=== PATIENT | male | born 1990 | race Caucasian/White ===

== ENCOUNTER 2017-02-02 10:35 | Inpatient (IN) | payer BC, OTHER ==
[~2017-02-02] VITALS: Ht 170.2 cm; Wt 57.6 kg
[~2017-02-02 10:35] MED LIST: ESOM20CA; METH5TAB2; METR250T; PRED5PAK8
[2017-02-02] MEDS ORDERED: ACETAMINOPHEN 325 MG TAB PO ONE ×2 (10:36→11:00)
[2017-02-02] MEDS ORDERED: SODIUM CHLORIDE 0.9% 1,000 ML IVB ONE (11:07)
[2017-02-02] MEDS ORDERED: PANTOPRAZOLE SODIUM 40 MG/10 ML VIAL IV STA (11:07)
[2017-02-02] MEDS ORDERED: methylPREDNISolone SOD SUCC 125 MG/2 ML VL IV ONE (11:15)
[2017-02-02] MEDS ORDERED: HYDROmorphone HCL 2 MG/ML VL IV ONE ×2 (11:15→12:30)
[2017-02-02] MEDS ORDERED: ONDANSETRON HCL 4 MG/2 ML VIAL IV ONE (11:15)
[2017-02-02 11:35] LABS: Basophils # (auto) 0 uL; Basophils % (auto) 0.3 % (0.0-2.0); CONDITION Y; DEFINITIVE SEE PRINTOUT; Eosinophils # (auto) 0 uL; Eosinophils % (auto) 0.1 % (0.0-7.0); Hematocrit 33.3 % (41.0-53.0); Hemoglobin 11.1 g/dL (13.5-17.5); Lymphocytes # (auto) 0.6 uL; Lymphocytes % (auto) 10.8 % (10.0-50.0); Mean Corpuscular Hemoglobin 23.4 pg (28.0-32.0); Mean Corpuscular Hgb Conc. 33.2 g/dL (32.0-36.0); Mean Corpuscular Volume 70.5 fL (80.0-100.0); Monocytes # (auto) 0.7 uL; Monocytes % (auto) 12.8 % (0.0-12.0); Neutrophils # (auto) 4.2 uL; Platelet Count (auto) 267 10^3/uL (140-450); White Blood Cell 5.6 10^3/uL (4.4-10.8)
[2017-02-02 11:54] LABS: Albumin 2.8 g/dL (3.4-5.0); BUN/Creatinine Ratio 10.7; Bilirubin, Total 0.7 mg/dL (0.2-1.0); Calcium 7.9 mg/dL (8.5-10.1); Potassium 3.2 mmol/L (3.5-5.1); Total Protein 7.1 g/dL (6.4-8.2)
[2017-02-02] MEDS ORDERED: IOHEXOL 300 MG/ML 100ML BOTTLE IJ ONE (12:32)
[2017-02-02] MEDS ORDERED: IOHEXOL 350 MG/ML 100ML IJ ONE (12:49)
[2017-02-02 14:04] LABS: Urine RBC None Seen /hpf (0 - 3)
[2017-02-02 14:11] LABS: Urine Bilirubin Negative (Negative); Urine Blood Negative /uL (Negative); Urine Color Yellow (Yellow); Urine Glucose Normal (Normal); Urine Ketone TRACE (Negative); Urine Nitrite Negative (Negative); Urine Squamous Epithelial Cell FEW /hpf (<5); Urine Urobilinogen Normal (Negative)
[2017-02-02] MEDS ORDERED: GABAPENTIN 300 MG CAP PO ONE (14:30)
[2017-02-02] MEDS ORDERED: NITROGLYCERIN 0.4 MG SL TAB SL PRN (14:30)
[2017-02-02] MEDS ORDERED: POTASSIUM CHLORIDE 8 MEQ TAB PO ONE (14:30)
[2017-02-02] MEDS ORDERED: ACETAMINOPHEN 325 MG TAB PO PRN (14:30)
[2017-02-02] MEDS ORDERED: oxyCODONE ER 20 MG TAB PO ONE (14:30)
[2017-02-02] MEDS ORDERED: methylPREDNISolone SOD SUCC 40 MG/ML VL IV ONE (14:30)
[2017-02-02] MEDS ORDERED: TEMAZEPAM 15 MG CAP PO PRN (14:30)
[2017-02-02] MEDS ORDERED: AMOXICILLIN TRIHYDRATE 250 MG CAP PO ONE (14:30)
[2017-02-02] MEDS ORDERED: metroNIDAZOLE 500MG/100ML 100 ML IV ONE (14:30)
[2017-02-02] MEDS: MULTIPLE VITAMIN TAB PO SCH (14:36)
[2017-02-02] MEDS: FAMOTIDINE 20 MG TAB PO SCH ×2 (14:37→21:36)
[2017-02-02 15:04] LABS: Hematocrit 35.1 % (41.0-53.0); Hemoglobin 11.4 g/dL (13.5-17.5)
[2017-02-02 15:14] LABS: INR 1.12 (0.9-1.15); Prothrombin Time 12.2 sec (9.37-12.3)
[2017-02-02] MEDS ORDERED: LORazepam 2MG/ML-1ML VIAL IV PRN ×2 (17:45→18:00)
[2017-02-02] MEDS: BOOST PLUS 8 ounce PO SCH ×2 (18:00→22:00)
[2017-02-02] MEDS: methylPREDNISolone SOD SUCC 40 MG/ML VL IV SCH (18:00)
[2017-02-02] MEDS: metroNIDAZOLE 500MG/100ML 100 ML IV SCH (21:35)
[2017-02-02] MEDS: AMOXICILLIN TRIHYDRATE 250 MG CAP PO SCH (21:35)
[2017-02-02] MEDS: SODIUM CHLOR 0.9% PF (SALINE LOCK) 10ML VIAL IV SCH (21:35)
[2017-02-02] MEDS: LEVETIRACETAM 500 MG TAB PO SCH (21:36)
[2017-02-02] MEDS: oxyCODONE ER 20 MG TAB PO SCH (21:36)
[2017-02-02] MEDS: GABAPENTIN 300 MG CAP PO SCH (21:36)
[2017-02-02] MEDS ORDERED: GABA-339 PO (23:17)
[2017-02-02] MEDS ORDERED: ONDA8TAB6 PO (23:17)
[2017-02-02] MEDS ORDERED: MAGN250T3 PO (23:17)
[2017-02-02] MEDS ORDERED: NUTRTAB OR (23:17)
[2017-02-02] MEDS ORDERED: OXYM20TA OR (23:17)
[2017-02-02] MEDS: HYDROmorphone HCL 2 MG/ML VL IV PRN (23:44)
[2017-02-03 00:17] VITALS: BP 105/66
[2017-02-03 00:37] VITALS: BP 105/60
[2017-02-03] MEDS: methylPREDNISolone SOD SUCC 40 MG/ML VL IV SCH ×5 (01:23→23:34)
[2017-02-03] MEDS: ONDANSETRON HCL 4 MG/2 ML VIAL IV PRN ×2 (02:20→10:35)
[2017-02-03] MEDS: HYDROmorphone HCL 2 MG/ML VL IV PRN ×4 (03:57→21:57)
[2017-02-03 05:30] LABS: Basophils # (auto) 0 uL; Basophils % (auto) 0.1 % (0.0-2.0); CONDITION Y; DEFINITIVE SEE PRINTOUT; Eosinophils # (auto) 0 uL; Hematocrit 37.2 % (41.0-53.0); Hemoglobin 11.8 g/dL (13.5-17.5); Lymphocytes # (auto) 1.4 uL; Lymphocytes % (auto) 9.1 % (10.0-50.0); Mean Corpuscular Hemoglobin 22.9 pg (28.0-32.0); Mean Corpuscular Hgb Conc. 31.6 g/dL (32.0-36.0); Mean Corpuscular Volume 72.7 fL (80.0-100.0); Monocytes # (auto) 0.6 uL; Monocytes % (auto) 3.7 % (0.0-12.0); Neutrophils # (auto) 13.5 uL; Neutrophils % (auto) 87.1 % (37.0-80.0); Platelet Count (auto) 337 10^3/uL (140-450); Red Cell Distribution Width 18.7 % (11.6-16.0); White Blood Cell 15.5 10^3/uL (4.4-10.8)
[2017-02-03 05:31] VITALS: BP 124/85
[2017-02-03] MEDS: metroNIDAZOLE 500MG/100ML 100 ML IV SCH ×3 (05:52→21:56)
[2017-02-03] MEDS: AMOXICILLIN TRIHYDRATE 250 MG CAP PO SCH (05:53)
[2017-02-03] MEDS: GABAPENTIN 300 MG CAP PO SCH ×3 (05:53→21:56)
[2017-02-03] MEDS: SODIUM CHLOR 0.9% PF (SALINE LOCK) 10ML VIAL IV SCH ×3 (05:53→21:56)
[2017-02-03] MEDS: BOOST PLUS 8 ounce PO SCH ×4 (05:54→21:56)
[2017-02-03 05:56] LABS: Potassium 4.7 mmol/L (3.5-5.1)
[2017-02-03 06:00] LABS: Albumin 2.9 g/dL (3.4-5.0); BUN/Creatinine Ratio 22.2; Calcium 8.7 mg/dL (8.5-10.1)
[2017-02-03 06:03] LABS: Bilirubin, Total 0.5 mg/dL (0.2-1.0); Total Protein 8.5 g/dL (6.4-8.2)
[2017-02-03] MEDS ORDERED: ADAL40KI2 SC (07:34)
[2017-02-03 09:00] VITALS: BP 100/45
[2017-02-03] MEDS: oxyCODONE ER 20 MG TAB PO SCH ×2 (10:00→22:00)
[2017-02-03] MEDS ORDERED: cefTRIAXone 1GM/50ML D5W 50 ML IV ONE (11:00)
[2017-02-03] MEDS: MULTIPLE VITAMIN TAB PO SCH (11:08)
[2017-02-03] MEDS: LEVETIRACETAM 500 MG TAB PO SCH ×2 (11:08→21:56)
[2017-02-03] MEDS: FAMOTIDINE 20 MG TAB PO SCH ×2 (11:08→21:56)
[2017-02-03] MEDS: CITALOPRAM HYDROBR 20 MG TAB PO SCH (11:08)
[2017-02-03] MEDS ORDERED: LORazepam 0.5 MG TAB PO PRN (11:45)
[2017-02-03] MEDS ORDERED: LORazepam 2MG/ML-1ML VIAL IV PRN (12:30)
[2017-02-03] MEDS: ALPRAZolam 0.5 MG TAB PO SCH ×2 (12:44→21:57)
[2017-02-03] MEDS: HYDROmorphone HCL 2 MG TAB PO SCH ×3 (12:45→23:34)
[2017-02-03 13:00] VITALS: BP 118/73
[2017-02-03] MEDS: NYSTATIN TOPICAL POWDER 15GM TOP SCH ×2 (13:01→22:00)
[2017-02-03 21:52] VITALS: BP 118/71
[2017-02-04] VITALS (7 sets, daily range): BP systolic 103–123; BP diastolic 42–90
[2017-02-04] MEDS: SODIUM CHLOR 0.9% PF (SALINE LOCK) 10ML VIAL IV SCH ×3 (05:42→22:04)
[2017-02-04] MEDS: metroNIDAZOLE 500MG/100ML 100 ML IV SCH ×3 (05:43→22:04)
[2017-02-04] MEDS: BOOST PLUS 8 ounce PO SCH ×4 (05:43→22:05)
[2017-02-04] MEDS: HYDROmorphone HCL 2 MG TAB PO SCH ×4 (05:43→23:28)
[2017-02-04] MEDS: GABAPENTIN 300 MG CAP PO SCH ×3 (05:43→22:05)
[2017-02-04] MEDS: methylPREDNISolone SOD SUCC 40 MG/ML VL IV SCH ×4 (05:43→23:28)
[2017-02-04] MEDS: ALPRAZolam 0.5 MG TAB PO SCH ×2 (09:49→22:05)
[2017-02-04] MEDS: FAMOTIDINE 20 MG TAB PO SCH ×2 (09:49→22:05)
[2017-02-04] MEDS: ONDANSETRON HCL 4 MG/2 ML VIAL IV PRN ×2 (09:49→20:13)
[2017-02-04] MEDS: HYDROmorphone HCL 2 MG/ML VL IV PRN ×2 (09:49→20:13)
[2017-02-04] MEDS: LEVETIRACETAM 500 MG TAB PO SCH ×2 (09:49→22:05)
[2017-02-04] MEDS: CITALOPRAM HYDROBR 20 MG TAB PO SCH (09:49)
[2017-02-04] MEDS: MULTIPLE VITAMIN TAB PO SCH (09:49)
[2017-02-04] MEDS: oxyCODONE ER 20 MG TAB PO SCH ×2 (09:50→22:00)
[2017-02-04] MEDS: cefTRIAXone 1GM/50ML D5W 50 ML IV SCH (09:50)
[2017-02-04] MEDS: NYSTATIN TOPICAL POWDER 15GM TOP SCH ×2 (11:09→22:05)
[2017-02-05 05:26] VITALS: BP 98/50
[2017-02-05] MEDS: SODIUM CHLOR 0.9% PF (SALINE LOCK) 10ML VIAL IV SCH ×3 (06:10→20:51)
[2017-02-05] MEDS: methylPREDNISolone SOD SUCC 40 MG/ML VL IV SCH ×4 (06:10→23:41)
[2017-02-05] MEDS: metroNIDAZOLE 500MG/100ML 100 ML IV SCH ×3 (06:10→20:51)
[2017-02-05] MEDS: BOOST PLUS 8 ounce PO SCH ×4 (06:10→20:51)
[2017-02-05] MEDS: GABAPENTIN 300 MG CAP PO SCH ×3 (06:11→20:50)
[2017-02-05] MEDS ORDERED: HYDROcodone-ACET 5/325MG TAB PO PRN (06:45)
[2017-02-05 09:00] VITALS: BP 117/65
[2017-02-05] MEDS: cefTRIAXone 1GM/50ML D5W 50 ML IV SCH (09:27)
[2017-02-05] MEDS: CITALOPRAM HYDROBR 20 MG TAB PO SCH (09:29)
[2017-02-05] MEDS: MULTIPLE VITAMIN TAB PO SCH (09:30)
[2017-02-05] MEDS: HYDROmorphone HCL 2 MG/ML VL IV PRN (09:31)
[2017-02-05] MEDS: oxyCODONE ER 20 MG TAB PO SCH ×2 (09:31→20:50)
[2017-02-05] MEDS: FAMOTIDINE 20 MG TAB PO SCH ×2 (09:31→20:50)
[2017-02-05] MEDS: LEVETIRACETAM 500 MG TAB PO SCH ×2 (09:31→20:50)
[2017-02-05] MEDS ORDERED: METR500T PO (10:00)
[2017-02-05] MEDS: NYSTATIN TOPICAL POWDER 15GM TOP SCH ×2 (10:18→20:51)
[2017-02-05] MEDS: ALPRAZolam 0.5 MG TAB PO SCH ×2 (10:19→20:51)
[2017-02-05 11:13] LABS: Basophils # (auto) 0 uL; CONDITION Y; DEFINITIVE SEE PRINTOUT; Eosinophils # (auto) 0 uL; Lymphocytes # (auto) 1.8 uL; Red Cell Distribution Width 18.9 % (11.6-16.0)
[2017-02-05 11:14] LABS: Hematocrit 38.6 % (41.0-53.0); Hemoglobin 12.5 g/dL (13.5-17.5); Lymphocytes % (auto) 12.7 % (10.0-50.0); Mean Corpuscular Hemoglobin 23.4 pg (28.0-32.0); Mean Corpuscular Hgb Conc. 32.4 g/dL (32.0-36.0); Mean Corpuscular Volume 72.2 fL (80.0-100.0); Mean Platelet Volume 8.6 fL (7.4-10.4); Monocytes # (auto) 0.5 uL; Monocytes % (auto) 3.6 % (0.0-12.0); Neutrophils # (auto) 11.7 uL; Neutrophils % (auto) 83.7 % (37.0-80.0); Platelet Count (auto) 387 10^3/uL (140-450); White Blood Cell 13.9 10^3/uL (4.4-10.8)
[2017-02-05 11:33] LABS: BUN/Creatinine Ratio 21.1; Calcium 8.6 mg/dL (8.5-10.1); Potassium 3.9 mmol/L (3.5-5.1)
[2017-02-05] MEDS: ONDANSETRON HCL 4 MG/2 ML VIAL IV PRN (11:49)
[2017-02-05] MEDS ORDERED: HYDROmorphone HCL 2 MG TAB PO SCH (12:00)
[2017-02-05 13:00] VITALS: BP 121/81
[2017-02-05 17:12] VITALS: BP 113/63
[2017-02-05] MEDS: HYDROmorphone HCL 2 MG TAB PO SCH ×2 (17:30→23:41)
[2017-02-05 20:00] VITALS: BP 116/68
[2017-02-05 22:00] VITALS: BP 116/68
[2017-02-06 05:00] VITALS: BP 99/44
[2017-02-06] MEDS: methylPREDNISolone SOD SUCC 40 MG/ML VL IV SCH ×3 (05:27→18:46)
[2017-02-06] MEDS: metroNIDAZOLE 500MG/100ML 100 ML IV SCH ×3 (05:27→22:51)
[2017-02-06] MEDS: HYDROmorphone HCL 2 MG TAB PO SCH ×4 (05:28→20:34)
[2017-02-06] MEDS: GABAPENTIN 300 MG CAP PO SCH ×3 (05:28→22:52)
[2017-02-06] MEDS: SODIUM CHLOR 0.9% PF (SALINE LOCK) 10ML VIAL IV SCH ×3 (05:28→22:00)
[2017-02-06] MEDS: BOOST PLUS 8 ounce PO SCH ×4 (05:28→22:00)
[2017-02-06 09:00] VITALS: BP 130/75
[2017-02-06] MEDS: oxyCODONE ER 20 MG TAB PO SCH ×2 (09:44→22:00)
[2017-02-06] MEDS: MULTIPLE VITAMIN TAB PO SCH (09:45)
[2017-02-06] MEDS: FAMOTIDINE 20 MG TAB PO SCH ×2 (09:45→22:53)
[2017-02-06] MEDS: CITALOPRAM HYDROBR 20 MG TAB PO SCH (09:45)
[2017-02-06] MEDS: LEVETIRACETAM 500 MG TAB PO SCH ×2 (09:45→22:52)
[2017-02-06] MEDS: cefTRIAXone 1GM/50ML D5W 50 ML IV SCH (09:45)
[2017-02-06] MEDS: ALPRAZolam 0.5 MG TAB PO SCH ×2 (09:45→22:53)
[2017-02-06] MEDS: NYSTATIN TOPICAL POWDER 15GM TOP SCH ×2 (09:45→22:53)
[2017-02-06] MEDS ORDERED: NALOXONE HCL 0.4 MG/ML VIAL IV ONE (10:30)
[2017-02-06 13:00] VITALS: BP 125/90
[2017-02-06] MEDS ORDERED: HYDROmorphone HCL 2 MG TAB PO PRN (14:00)
[2017-02-06 17:25] VITALS: BP 122/68
[2017-02-06 22:00] VITALS: BP 99/45
[2017-02-07] MEDS: HYDROmorphone HCL 2 MG TAB PO SCH ×4 (00:48→14:18)
[2017-02-07] MEDS: methylPREDNISolone SOD SUCC 40 MG/ML VL IV SCH ×3 (00:48→14:18)
[2017-02-07 05:00] VITALS: BP 109/71
[2017-02-07] MEDS: metroNIDAZOLE 500MG/100ML 100 ML IV SCH (05:50)
[2017-02-07] MEDS: BOOST PLUS 8 ounce PO SCH ×2 (06:00→12:00)
[2017-02-07] MEDS: SODIUM CHLOR 0.9% PF (SALINE LOCK) 10ML VIAL IV SCH (06:00)
[2017-02-07 06:22] LABS: BUN/Creatinine Ratio 28.6; Calcium 8.3 mg/dL (8.5-10.1); Potassium 4.6 mmol/L (3.5-5.1)
[2017-02-07] MEDS: GABAPENTIN 300 MG CAP PO SCH ×2 (06:51→14:18)
[2017-02-07 07:11] LABS: Basophils # (auto) 0 uL; Basophils % (auto) 0.2 % (0.0-2.0); CONDITION Y; DEFINITIVE SEE PRINTOUT; Eosinophils # (auto) 0 uL; Hematocrit 36.3 % (41.0-53.0); Hemoglobin 11.6 g/dL (13.5-17.5); Lymphocytes # (auto) 1.9 uL; Lymphocytes % (auto) 17.7 % (10.0-50.0); Mean Corpuscular Hemoglobin 23.4 pg (28.0-32.0); Mean Corpuscular Hgb Conc. 31.9 g/dL (32.0-36.0); Mean Corpuscular Volume 73.5 fL (80.0-100.0); Mean Platelet Volume 8.9 fL (7.4-10.4); Monocytes # (auto) 0.6 uL; Monocytes % (auto) 5.1 % (0.0-12.0); Neutrophils # (auto) 8.4 uL; Platelet Count (auto) 361 10^3/uL (140-450); Red Cell Distribution Width 18.3 % (11.6-16.0); White Blood Cell 10.9 10^3/uL (4.4-10.8)
[2017-02-07 08:22] VITALS: BP 92/42
[2017-02-07] MEDS: MULTIPLE VITAMIN TAB PO SCH (09:16)
[2017-02-07] MEDS: CITALOPRAM HYDROBR 20 MG TAB PO SCH (09:16)
[2017-02-07] MEDS: ALPRAZolam 0.5 MG TAB PO SCH (09:16)
[2017-02-07] MEDS: LEVETIRACETAM 500 MG TAB PO SCH (09:16)
[2017-02-07] MEDS: cefTRIAXone 1GM/50ML D5W 50 ML IV SCH (09:16)
[2017-02-07] MEDS: oxyCODONE ER 20 MG TAB PO SCH (09:17)
[2017-02-07] MEDS: FAMOTIDINE 20 MG TAB PO SCH (09:17)
[2017-02-07] MEDS: NYSTATIN TOPICAL POWDER 15GM TOP SCH (09:18)
[2017-02-07 13:00] VITALS: BP 110/87
== END 2017-02-07 15:10 | disposition home or self-care (01) | DRG 371 ==
LOC: ER 10:35 → EDBD 10:35 → TELE 10:36 → TELE-WESTW 22:48 → WEST WING 02-05 11:51 → TELE-WESTW 02-05 18:46 → WEST WING 02-05 19:01
PROVIDERS: ADMIT Internal Medicine; ATTEND Nurse Practitioner Acute Care
DX: A04.7 Enterocolitis due to Clostridium difficile (principal); E43 Unspecified severe protein-calorie malnutrition; E87.1 Hypo-osmolality and hyponatremia; K50.90 Crohn's disease, unspecified, without complications; R45.851 Suicidal ideations; Z68.1 Body mass index [BMI] 19.9 or less, adult; D63.8 Anemia in other chronic diseases classified elsewhere; G40.409 Other generalized epilepsy and epileptic syndromes, not intractable, without status epilepticus; K58.9 Irritable bowel syndrome, unspecified; E87.6 Hypokalemia; F17.210 Nicotine dependence, cigarettes, uncomplicated; F12.90 Cannabis use, unspecified, uncomplicated; F32.9 Major depressive disorder, single episode, unspecified; F43.10 Post-traumatic stress disorder, unspecified; Z79.899 Other long term (current) drug therapy; Z88.5 Allergy status to narcotic agent; Z88.8 Allergy status to other drugs, medicaments and biological substances
CPT/HCPCS: 36415; 70551; 74177; 80048; 80053; 80307; 81001; 82270; 83540; 83605; 85014; 85018; 85025; 85610; 87040; 87045; 87081; 87493; 87899; 95819; 96361; 96365; 96375; 96376; C9113; J0696; J2405; J3490

== ENCOUNTER 2017-12-16 09:17 | Emergency (ER) | payer BC ==
[~2017-12-16] VITALS: Ht 170.2 cm; Wt 57.2 kg
[~2017-12-16 09:17] MED LIST changes: +ADAL40KI2 SC; -ESOM20CA; +GABA-339 PO; +MAGN250T3 PO; -METH5TAB2; -METR250T; +METR500T PO; +NUTRTAB OR; +ONDA8TAB6 PO; +OXYM20TA OR
[2017-12-16 09:58] LABS: Basophils # (auto) 0.1 uL; Basophils % (auto) 0.8 % (0.0-2.0); Eosinophils # (auto) 0.1 uL; Eosinophils % (auto) 0.7 % (0.0-7.0); Hematocrit 48.3 % (41.0-53.0); Hemoglobin 16.3 g/dL (13.5-17.5); Lymphocytes # (auto) 4.3 uL; Lymphocytes % (auto) 44.4 % (10.0-50.0); Mean Corpuscular Hemoglobin 27.4 pg (28.0-32.0); Mean Corpuscular Hgb Conc. 33.8 g/dL (32.0-36.0); Mean Corpuscular Volume 81.1 fL (80.0-100.0); Monocytes # (auto) 1.2 uL; Monocytes % (auto) 12.5 % (0.0-12.0); Neutrophils % (auto) 41.6 % (37.0-80.0); Nucleated Red Blood Cells % 0.1 %; Platelet Count (auto) 294 10^3/uL (140-450); Red Blood Cells 5.95 10^6/uL (4.5-5.90); White Blood Cell 9.6 10^3/uL (4.4-10.8)
[2017-12-16 10:19] LABS: Albumin 4.2 g/dL (3.4-5.0); Calcium 9.4 mg/dL (8.5-10.1); Potassium 3.7 mmol/L (3.5-5.1); Total Protein 9.4 g/dL (6.4-8.2)
[2017-12-16] MEDS ORDERED: SODIUM CHLORIDE 0.9% 1,000 ML IV ONE ×2 (10:34)
[2017-12-16] MEDS ORDERED: IOHEXOL 300 MG/ML 100ML BOTTLE IJ ONE (10:38)
[2017-12-16] MEDS ORDERED: MORPHINE SULFATE 4 MG/ML SYR/VIAL IV ONE (10:45)
[2017-12-16] MEDS ORDERED: ONDANSETRON HCL 4 MG/2 ML VIAL IV ONE ×2 (10:45→16:15)
[2017-12-16] MEDS ORDERED: MORPHINE SULFATE ONE (11:40)
[2017-12-16] MEDS ORDERED: ACETAMINOPHEN 500 MG TAB PO ONE (11:45)
[2017-12-16 14:56] LABS: Urine Bacteria NONE SEEN /hpf (None Seen); Urine Blood Negative /uL (Negative); Urine Mucus FEW (None Seen); Urine Specific Gravity 1.033 (1.001-1.035); Urine WBC 1 /hpf (0 - 3)
[2017-12-16 16:10] VITALS: BP 125/63
[2017-12-16] MEDS ORDERED: HYDROmorphone HCL 2 MG/ML VL IV ONE (16:15)
== END 2017-12-16 17:04 | disposition home or self-care (01) ==
LOC: ER 09:22
DX: K75.9 Inflammatory liver disease, unspecified (principal); F17.210 Nicotine dependence, cigarettes, uncomplicated; F12.10 Cannabis abuse, uncomplicated; K50.90 Crohn's disease, unspecified, without complications; Z88.8 Allergy status to other drugs, medicaments and biological substances; Z88.6 Allergy status to analgesic agent
CPT/HCPCS: 36415; 74177; 80053; 81001; 83605; 85025; 87040; 96361; 96374; 96375; 99285; J1170; J2405; J7030; Q9967; J2270